=== PATIENT | male | born 1990 | race Caucasian/White ===

== ENCOUNTER 2017-02-25 03:55 | Emergency (ER) | payer OTHER ==
[~2017-02-25] VITALS: Ht 172.7 cm; Wt 96.4 kg
[2017-02-25 04:11] VITALS: BP 130/65; PULSE 99; RESP 16; O2SAT 99
[2017-02-25 05:11] LABS: BASOPHILS % (AUTO) 0.5 % (0-3); EOSINOPHILS % (AUTO) 0.9 % (0-5); MONOCYTES % (AUTO) 10.3 % (4-12); Mean Corpuscular Hemoglobin 31.3 pg (27.0-35.0); Mean Corpuscular Volume 88.1 fL (81-100); NEUTROPHILS % (AUTO) 63.8 % (40-74); Platelet Count 228 bil/L (150-400)
--- NOTE | 2017-02-25 15:39 | PCM.EDPN ---
ED Note Date of Service Feb 25, 2017 ED Attending Statement 26-year-old male presenting requesting psychiatric evaluation. He eloped prior to be evaluated. Adeel Schafer MD Feb 25, 2017 15:39
== END 2017-02-25 07:58 | disposition left against medical advice (07) ==
LOC: SED 03:55
DX: Z02.89 Encounter for other administrative examinations (principal); Z53.21 Procedure and treatment not carried out due to patient leaving prior to being seen by health care provider
CPT/HCPCS: 36415; 80053; 84443; 85025; G0480

== ENCOUNTER 2017-02-26 08:59 | Emergency (ER) | payer OTHER ==
[~2017-02-26] VITALS: Ht 175.3 cm; Wt 96.0 kg
[2017-02-26 09:12] VITALS: BP 117/75; PULSE 88; RESP 17; O2SAT 97
== END 2017-02-26 10:03 | disposition left against medical advice (07) ==
LOC: SED 08:59
DX: F99 Mental disorder, not otherwise specified (principal); Z53.21 Procedure and treatment not carried out due to patient leaving prior to being seen by health care provider